=== PATIENT | female | born 1930 | race Caucasian/White ===

== ENCOUNTER 2017-02-19 03:24 | Inpatient (IN) | payer OTHER, MEDICARE ==
[2017-02-19] MEDS ORDERED: NS 1,000 ML IV ONE (03:35)
[2017-02-19 03:50] LABS: % IMMATURE GRANULYOCYTES 0.7 % (0.0-1.1); ABSOLUTE IMMATURE GRANULOCYTES 0.07 10^3/uL (0.00-0.10); ADD DIFF? NO; HEMATOCRIT 33.9 % (38.0-47.0); HEMOGLOBIN 12.4 g/dL (12.6-16.3); MEAN CELL HEMOGLOBIN 32.9 pg (27.9-34.1); MEAN CELL HEMOGLOBIN CONCENTR. 36.6 g/dL (32.4-36.7); MEAN CELL VOLUME 89.9 fL (81.5-99.8); MEAN PLATELET VOLUME 10.7 fL (8.7-11.7); PLATELET COUNT 219 10^3/uL (150-400); RED BLOOD CELL COUNT 3.77 10^6/uL (4.18-5.33); RED CELL DISTRIBUTION WIDTH 12.3 % (11.5-15.2)
[2017-02-19 03:51] LABS: ADD MORPH? NO; ADD SCAN? NO; ATYPICAL LYMPHOCYTE FLAG 0 (0-99); FRAGMENT RBC FLAG 0 (0-99); LEFT SHIFT FLG 0 (0-99); LIPEMIA HEMOLYSIS FLAG 90 (0-99); PLATELET CLUMPS FLAG 10 (0-99)
[2017-02-19 04:04] LABS: ALANINE AMINOTRANSFERASE 40 IU/L (9-52); ALBUMIN 4.4 g/dL (3.5-5.0); ALKALINE PHOSPHATASE 54 IU/L (38-126); ANION GAP 9 mEq/L (8-16); ASPARTATE AMINOTRANSFERASE 44 IU/L (14-46); BILIRUBIN,TOTAL 1.1 mg/dL (0.1-1.4); BILIRUBIN-CONJUGATED 0.3 mg/dL (0.0-0.5); BILIRUBIN-UNCONJUGATED 0.8 mg/dL (0.0-1.1); CALCIUM 8.8 mg/dL (8.5-10.4); CARBON DIOXIDE 22 mEq/l (22-31); CHLORIDE 90 mEq/L (97-110); CREATININE 0.5 mg/dL (0.6-1.0); GLOMERULAR FILTRATION RATE > 60; GLUCOSE 125 mg/dL (70-100); POTASSIUM 3.7 mEq/L (3.5-5.2); SODIUM 121 mEq/L (134-144); TOTAL PROTEIN 6.9 g/dL (6.3-8.2)
[2017-02-19] MEDS ORDERED: AZITHROMYCIN 250 MG TAB PO ONE (04:26)
--- NOTE | 2017-02-19 04:26 | EDPHY ---
H & P Stated Complaint: increased weakness, N/V for past few hours Time Seen by Provider: 02/19/17 03:34 HPI/ROS: HPI The patient presents brought in by ambulance for nausea, vomiting, weakness, chills. Her symptoms have been present for the last 1 day and have been constant. She thinks she threw up about once. She has not had any fever that she is aware of. She has a similar prior episode in October of 2016. At that time she had similar symptoms and was found to be severely hyponatremic. She was transferred to the ICU at [facility]. Her hyponatremia was thought to be related to dehydration from diarrhea. She denies any diarrhea currently. REVIEW OF SYSTEMS Constitutional: No fever, no chills. Eyes: No discharge. ENT: No sore throat. Cardiovascular: No chest pain, no palpitations. Respiratory: No cough, no shortness of breath. Gastrointestinal: No abdominal pain, no vomiting. Genitourinary: No hematuria. Musculoskeletal: No back pain. Skin: No rashes. Neurological: No headache. PMHx:celiac disease, HL, anemia, hypothyroidism Soc Hx: resident at [facility] PHYSICAL General Appearance: Alert, no distress Eyes: Pupils equal and round no pallor or injection ENT, Mouth: Mucous membranes moist Respiratory: She has tachypneic, there are no retractions, lungs are clear to auscultation Cardiovascular: Regular rate and rhythm Gastrointestinal: Abdomen is soft and non-tender, no masses, bowel sounds normal Neurological: A&O, moves all extremities Skin: Warm and dry, no rashes Musculoskeletal: Neck is supple non tender Extremities: symmetrical, full range of motion Psychiatric: Patient is oriented X 3, there is no agitation Source: Patient, EMS - Personal History Current Tetanus/Diphtheria Vaccine: Unsure Current Tetanus Diphtheria and Acellular Pertussis (TDAP): Unsure - Medical/Surgical History Hx Asthma: No Hx Chronic Respiratory Disease: No Hx Diabetes: No Hx Cardiac Disease: No Hx Renal Disease: No Hx Cirrhosis: No Hx Alcoholism: No Hx HIV/AIDS: No Hx Splenectomy or Spleen Trauma: No Other PMH: hypothyroidism, anxiety, celiac disease, appy, hysterectomy, ostopenia - Social History Smoking Status: Never smoked Constitutional: Initial Vital Signs Temperature (C) 36.8 C 02/19/17 03:39 Heart Rate 83 02/19/17 03:39 Respiratory Rate 30 H 02/19/17 03:39 Blood Pressure 124/84 H 02/19/17 03:39 O2 Sat (%) 97 02/19/17 03:39 O2 Delivery Mode Nasal Cannula O2 (L/minute) 2 Allergies/Adverse Reactions: codeine Allergy (Verified 01/24/16 12:37) gluten Allergy (Verified 01/24/16 12:38) iodine Allergy (Verified 02/19/17 03:42) latex Allergy (Verified 02/19/17 03:42) morphine Allergy (Verified 01/24/16 12:38) shellfish derived Allergy (Verified 01/24/16 12:38) Home Medications: Medication Instructions Recorded ACIDOPHILUS 02/19/17 ALPRAZolam 02/19/17 ASPIRIN 02/19/17 CALCIUM 02/19/17 Levothyroxine 02/19/17 Lutein 02/19/17 MAGNESIUM 02/19/17 Vitamin D3 02/19/17 Medical Decision Making - Diagnostics EKG Interpretation: EKG: Complete interpretation has been separately recorded in the [employer] archive. Summary impression: Normal sinus rhythm with rate of 63 Imaging: Chest x-ray two view shows right middle lobe infiltrate, interpreted by me, radiology interpretation is pending. Differential Diagnosis: This is an 86-year-old female with history of celiac disease, hypothyroidism, depression, admission about 4 months ago for hyponatremia related to dehydration from diarrhea, who presents brought in by ambulance for several hours of nausea, vomiting, weakness. On exam, she does have normal vital signs though is somewhat tachypneic. Differential diagnosis includes sepsis, pneumonia, urinary tract infection, electrolyte disturbance, dehydration. She has a benign abdominal exam, thus I doubt acute intra-abdominal process. In the emergency room, the patient was initially given a normal saline bolus because of concern for sepsis. Labs and studies returned and showed that she was hyponatremic. At this time her fluids were held. Chest x-ray did show possible right middle lobe infiltrate and given her tachypnea, I will treat her for pneumonia with azithromycin and ceftriaxone. She was unable to provide a urine sample. It is unclear what the cause of her hyponatremia is at this time. Her vomiting could be resultant from the hyponatremia itself. Either way , she will require admission to the hospital, I have discussed the case with Dr. Justyn Blankenship from the hospitalist service and we will admit her. - Data Points Laboratory Results: Laboratory Results 02/19/17 03:45 02/19/17 03:45 02/19/17 02/19/17 02/19/17 03:50 03:50 03:45 WBC RBC Hgb Hct MCV MCH MCHC RDW Plt Count MPV Neut % (Auto) Lymph % (Auto) [place] % (Auto) Eos % (Auto) Baso % (Auto) Nucleat RBC Rel Count Absolute Neuts (auto) Absolute Lymphs (auto) Absolute Monos (auto) Absolute Eos (auto) Absolute Basos (auto) Absolute Nucleated RBC Immature Gran % Immature Gran # VBG Lactic Acid 1.9 mmol/L mmol/L (0.7-2.1) Sodium 121 mEq/L L mEq/L (134-144) Potassium 3.7 mEq/L mEq/L (3.5-5.2) Chloride 90 mEq/L L mEq/L (97-110) Carbon Dioxide 22 mEq/l mEq/l (22-31) Anion Gap 9 mEq/L mEq/L (8-16) BUN 9 mg/dL mg/dL (7-23) Creatinine 0.5 mg/dL L mg/dL (0.6-1.0) Estimated GFR > 60 Glucose 125 mg/dL H mg/dL (70-100) Calcium 8.8 mg/dL mg/dL (8.5-10.4) Total Bilirubin 1.1 mg/dL mg/dL (0.1-1.4) Conjugated Bilirubin 0.3 mg/dL mg/dL (0.0-0.5) Unconjugated Bilirubin 0.8 mg/dL mg/dL (0.0-1.1) AST 44 IU/L IU/L (14-46) ALT 40 IU/L IU/L (9-52) Alkaline Phosphatase 54 IU/L IU/L (38-126) Total Protein 6.9 g/dL g/dL (6.3-8.2) Albumin 4.4 g/dL g/dL (3.5-5.0) Lipase 68.0 IU/L IU/L (23-300) Influenza Typ A,B (DFA) NEGATIVE FOR FLU (NEGATIVE) 02/19/17 03:45 WBC 10.49 10^3/uL H 10^3/uL (3.80-9.50) RBC 3.77 10^6/uL L 10^6/uL (4.18-5.33) Hgb 12.4 g/dL L g/dL (12.6-16.3) Hct 33.9 % L % (38.0-47.0) MCV 89.9 fL fL (81.5-99.8) MCH 32.9 pg pg (27.9-34.1) MCHC 36.6 g/dL g/dL (32.4-36.7) RDW 12.3 % % (11.5-15.2) Plt Count 219 10^3/uL 10^3/uL (150-400) MPV 10.7 fL fL (8.7-11.7) Neut % (Auto) 88.8 % H % (39.3-74.2) Lymph % (Auto) 6.1 % L % (15.0-45.0) [place] % (Auto) 4.2 % L % (4.5-13.0) Eos % (Auto) 0.0 % L % (0.6-7.6) Baso % (Auto) 0.2 % L % (0.3-1.7) Nucleat RBC Rel Count 0.0 % % (0.0-0.2) Absolute Neuts (auto) 9.32 10^3/uL H 10^3/uL (1.70-6.50) Absolute Lymphs (auto) 0.64 10^3/uL L 10^3/uL (1.00-3.00) Absolute Monos (auto) 0.44 10^3/uL 10^3/uL (0.30-0.80) Absolute Eos (auto) 0.00 10^3/uL L 10^3/uL (0.03-0.40) Absolute Basos (auto) 0.02 10^3/uL 10^3/uL (0.02-0.10) Absolute Nucleated RBC 0.00 10^3/uL 10^3/uL (0-0.01) Immature Gran % 0.7 % % (0.0-1.1) Immature Gran # 0.07 10^3/uL 10^3/uL (0.00-0.10) VBG Lactic Acid Sodium Potassium Chloride Carbon Dioxide Anion Gap BUN Creatinine Estimated GFR Glucose Calcium Total Bilirubin Conjugated Bilirubin Unconjugated Bilirubin AST ALT Alkaline Phosphatase Total Protein Albumin Lipase Influenza Typ A,B (DFA) Medications Given: Discontinued Medications Azithromycin (Zithromax) 500 mg PO EDNOW ONE PRN Reason: Protocol Stop: 02/19/17 04:27 Last Admin: 02/19/17 04:43 Dose: 500 mg Sodium Chloride (Ns) 1,000 mls @ 0 mls/hr IV ONCE ONE PRN Reason: Wide Open Stop: 02/19/17 03:36 Last Admin: 02/19/17 03:49 Dose: 1,000 mls Ceftriaxone Sodium/Dextrose (Rocephin 1 Gm (Premix)) 50 mls @ 100 mls/hr IV EDNOW ONE PRN Reason: Protocol Stop: 02/19/17 04:55 Last Admin: 02/19/17 04:43 Dose: 50 mls Ondansetron HCl (Zofran) 4 mg IVP EDNOW ONE Stop: 02/19/17 05:16 Last Admin: 02/19/17 05:15 Dose: 4 mg Departure - Departure Condition: Good
--- NOTE | 2017-02-19 04:49 | CPEKG ---
Heart Rate: 63 RR Interval: 952 P-R Interval: 168 QRSD Interval: 90 QT Interval: 444 QTC Interval: 455 P Metaline: 47 QRS Metaline: 77 T Wave Metaline: 48 EKG Severity - BORDERLINE ECG - EKG Impression: SINUS RHYTHM EKG Impression: BORDERLINE T ABNORMALITIES, ANTERIOR LEADS EKG Impression: SIMILAR FINDINGS WERE NOTED IN OCT 2016 Electronically Signed By: Thomas Lowry 20-Feb-2017 11:35:44
[2017-02-19] MEDS ORDERED: ONDANSETRON 4 MG/2 ML VIAL IVP ONE (05:15)
[2017-02-19] MEDS ORDERED: ONDANSETRON 4 MG/2 ML VIAL ONE (05:34)
[2017-02-19] MEDS ORDERED: ONDANSETRON DISINTEGRATING 4 MG TAB PO PRN (07:19)
[2017-02-19] MEDS ORDERED: ONDANSETRON 4 MG/2 ML VIAL IVP PRN (07:19)
--- NOTE | 2017-02-19 07:58 | GHP ---
[f rep st] HISTORY AND PHYSICAL DATE OF ADMISSION: 02/19/2017 HISTORY OF PRESENT ILLNESS: The patient is a pleasant 86-year-old female with a history of hyponatr emia, celiac disease, and possible atrial tachycardia, who presents with an episode of nausea and vo miting. She described her diet to me and it sounds like it is relatively low in sodium. Overnight last night, she developed some nausea, vomiting, weakness, and chills. Her son is present at the [facility] and notes that she is weaker and perhaps a bit slow to respond than usual. I note that she is slow to respond, but not particularly confused. She had an episode of admission to [facility] ICU following presentation to [facility] ER with a sodium 114. That was in the context of di arrhea and this has not going on here as best I can tell. She does not take diuretics. She does melton ve hypothyroidism and takes thyroid replacement. She is tachypneic during the interview, but she is not necessarily having any respiratory complaints . She is notably breathless after sitting up for me to listen to her back. She has not had fever, but she did have the aforementioned chills and vomiting. REVIEW OF SYSTEMS: Complete 10-point review of systems conducted, negative except as noted in the H PI. PAST MEDICAL HISTORY: It sounds like atrial tachycardia detected on the monitor, celiac disease, hy ponatremia. ALLERGIES: Codeine, gluten, iodine, latex, morphine, and shellfish. HOME MEDICATIONS: List I suspect to be old, is vitamin D3, magnesium, lutein, levothyroxine, calciu m, aspirin, alprazolam for sleep, acidophilus. She notes she takes metoprolol. It is not on this l ist. SOCIAL HISTORY: She lives at the [facility]. She does not smoke cigarettes or drink alcohol. FAMILY HISTORY: Son has celiac disease. PHYSICAL EXAM: VITAL SIGNS: Temp 36.8, blood pressure 124/84, pulse 83, breathing 30 times a minut e, 97% on room air. GENERAL: No acute distress. Tachypneic. HEENT: Sclerae anicteric. Orophary nx clear. Mucous membranes moist. NECK: Supple without lymphadenopathy, JVD. LUNGS: Crackles at the right base, but otherwise clear to auscultation bilaterally. HEART: S1, S2. Not tachycardic. ABDOMEN: Soft, nontender, nondistended. LOWER EXTREMITIES: Without edema. Calves are nontender . SKIN: Without rash. NEUROLOGIC: Nonfocal. LABS: White count 10.5, hematocrit is 33.9, platelets are 219,000. She does have a left shift. He r baseline hematocrit is in the 30s. She has a venous lactate of 1.9. Sodium 141, potassium 3.7, c hloride 90, bicarb 22, BUN 9, creatinine 0.5, glucose 125. Lipase and LFTs are normal. She is nega tive for influenza. Chest x-ray, interpreted by me, shows possible right lower lobe infiltrate. Th ere is also some diffuse airspace disease. EKG interpreted by me shows sinus at 63 with normal axis and intervals. Diffuse flat Ts T-wave inversion in V2, V3, although both those leads look an awful lot like V1. We discussed case Dr. Cheryl Holden. ASSESSMENT/PLAN: An 86-year-old female, who presents with vomiting and hyponatremia and likely comm unity-acquired pneumonia. 1. Pneumonia. Treated this as community-acquired pneumonia given that she lives at the [facility] ceftriaxone and azithromycin. It could be an aspiration event related to her vomiting or the vom iting could be related to her inferior pneumonia. Ceftriaxone and Zithromax will be started. 2. Hyponatremia. I suspect this is poor p.o. intake; however, I cannot rule out syndrome of inappr opriate antidiuretic hormone secretion from a pulmonary process. She received about 500 cc of dany l saline. We will repeat a sodium now, follow q.6 hours. Certainly, if it is falling with IV fluid s, that is suggestive of syndrome of inappropriate antidiuretic hormone secretion, for completeness' sake, I have also sent a TSH. We will hold further IV fluids until those studies return. 3. Anemia. This is chronic and mild. 4. Code status. It appears to be full. I discussed it with her. She was hesitant to make any dec isions on that basis. 5. Prophylaxis. Pharmacologic prophylaxis indicated. Start venous thromboembolism prophylaxis wit h enoxaparin 30. 6. Atrial tachycardia. She is stable right now, not having palpitations. 7. Disposition. Inpatient status. /[id number]/MODL
[2017-02-19 08:40] LABS: COLOR YELLOW; LEUKOCYTE ESTERASE,URINE NEGATIVE (NEGATIVE); NITRITE,URINE NEGATIVE (NEGATIVE)
[2017-02-19 08:43] LABS: ANION GAP 9 mEq/L (8-16); CALCIUM 8.9 mg/dL (8.5-10.4); CARBON DIOXIDE 21 mEq/l (22-31); CHLORIDE 92 mEq/L (97-110); CREATININE 0.6 mg/dL (0.6-1.0); GLOMERULAR FILTRATION RATE > 60; GLUCOSE 105 mg/dL (70-100); POTASSIUM 3.7 mEq/L (3.5-5.2); SODIUM 122 mEq/L (134-144)
[2017-02-19] MEDS: ENOXAPARIN 30 MG/0.3 ML SYR SC SCH (10:36)
[2017-02-19] MEDS ORDERED: diphenhydrAMINE 25 MG CAP PO PRN (11:17)
[2017-02-19] MEDS ORDERED: ALPRAZolam 0.25 MG TAB PO PRN (11:17)
[2017-02-19 11:43] LABS: ANION GAP 10 mEq/L (8-16); CALCIUM 8.6 mg/dL (8.5-10.4); CARBON DIOXIDE 21 mEq/l (22-31); CHLORIDE 91 mEq/L (97-110); CREATININE 0.6 mg/dL (0.6-1.0); GLOMERULAR FILTRATION RATE > 60; GLUCOSE 128 mg/dL (70-100); POTASSIUM 3.6 mEq/L (3.5-5.2); SODIUM 122 mEq/L (134-144)
[2017-02-19] MEDS: NS 1,000 ML IV SCH (11:49)
[2017-02-19] MEDS: LEVOTHYROXINE 50 MCG TAB PO SCH (11:55)
[2017-02-19] MEDS ORDERED: FAMOTIDINE 20 MG TAB PO PRN ×2 (15:50→21:00)
--- NOTE | 2017-02-19 16:43 | HOSPPROG ---
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 * will continue gentle IV fluids and fluid restriction as well as salt tablets * monitor sodium Subjective: feels stronger Objective: Vital Signs Temp Pulse Resp BP Pulse Ox 37.3 C 62 18 117/54 L 97 02/19/17 15:39 02/19/17 15:39 02/19/17 15:39 02/19/17 15:39 02/19/17 15:39 Laboratory Results 02/19/17 10:58 02/18/17 02/19/17 02/20/17 05:59 05:59 05:59 Intake Total 1420 Output Total 1100 Balance 320 - Physical Exam Constitutional: no apparent distress, appears nourished, not in pain Eyes: anicteric sclera, EOMI Ears, Nose, Mouth, Throat: moist mucous membranes Cardiovascular: regular rate and rhythym, no murmur, rub, or gallop Respiratory: no respiratory distress, no rales or rhonchi, clear to auscultation Gastrointestinal: normoactive bowel sounds, soft, non-tender abdomen, no palpable masses Skin: warm Neurologic: AAOx3 Psychiatric: interacting appropriately, not anxious, not encephalopathic, thought process linear
[2017-02-19] MEDS: SODIUM CHLORIDE 1,000 MG TAB PO SCH (17:27)
[2017-02-19] MEDS: METOPROLOL TARTRATE 25 MG TAB PO SCH (21:06)
[2017-02-19] MEDS: MIRTAZAPINE 15 MG TAB PO SCH (21:07)
[2017-02-20] MEDS: NS 1,000 ML IV SCH (01:12)
[2017-02-20 05:37] LABS: % IMMATURE GRANULYOCYTES 0.4 % (0.0-1.1); ABSOLUTE IMMATURE GRANULOCYTES 0.03 10^3/uL (0.00-0.10); ADD DIFF? NO; ADD MORPH? NO; ADD SCAN? NO; ATYPICAL LYMPHOCYTE FLAG 10 (0-99); FRAGMENT RBC FLAG 0 (0-99); HEMATOCRIT 30.7 % (38.0-47.0); HEMOGLOBIN 11.1 g/dL (12.6-16.3); LEFT SHIFT FLG 0 (0-99); LIPEMIA HEMOLYSIS FLAG 90 (0-99); MEAN CELL HEMOGLOBIN 33.1 pg (27.9-34.1); MEAN CELL HEMOGLOBIN CONCENTR. 36.2 g/dL (32.4-36.7); MEAN CELL VOLUME 91.6 fL (81.5-99.8); MEAN PLATELET VOLUME 8.9 fL (8.7-11.7); PLATELET CLUMPS FLAG 10 (0-99); PLATELET COUNT 226 10^3/uL (150-400); RED BLOOD CELL COUNT 3.35 10^6/uL (4.18-5.33); RED CELL DISTRIBUTION WIDTH 12.8 % (11.5-15.2)
[2017-02-20 05:57] LABS: ANION GAP 7 mEq/L (8-16); CALCIUM 8.3 mg/dL (8.5-10.4); CARBON DIOXIDE 24 mEq/l (22-31); CHLORIDE 102 mEq/L (97-110); CREATININE 0.6 mg/dL (0.6-1.0); GLOMERULAR FILTRATION RATE > 60; GLUCOSE 85 mg/dL (70-100); POTASSIUM 3.8 mEq/L (3.5-5.2); SODIUM 133 mEq/L (134-144)
[2017-02-20] MEDS ORDERED: LEVOTHYROXINE 25 MCG TAB PO SCH (08:00)
[2017-02-20] MEDS ORDERED: AZITHROMYCIN IV 500 MG in D5W 250 ML IV SCH (09:00)
[2017-02-20] MEDS: ENOXAPARIN 30 MG/0.3 ML SYR SC SCH (09:14)
[2017-02-20] MEDS: AZITHROMYCIN 250 MG TAB PO SCH (09:15)
[2017-02-20] MEDS: METOPROLOL TARTRATE 25 MG TAB PO SCH ×2 (09:15→20:52)
[2017-02-20] MEDS: ASPIRIN EC 81 MG TAB PO SCH (09:16)
[2017-02-20] MEDS: SODIUM CHLORIDE 1,000 MG TAB PO SCH (09:18)
[2017-02-20 10:15] LABS: ANION GAP 8 mEq/L (8-16); CALCIUM 8.5 mg/dL (8.5-10.4); CARBON DIOXIDE 24 mEq/l (22-31); CHLORIDE 102 mEq/L (97-110); CREATININE 0.6 mg/dL (0.6-1.0); GLOMERULAR FILTRATION RATE > 60; GLUCOSE 92 mg/dL (70-100); POTASSIUM 3.6 mEq/L (3.5-5.2); SODIUM 134 mEq/L (134-144)
[2017-02-20] MEDS: ACETAMINOPHEN 325 MG TAB PO PRN (10:57)
--- NOTE | 2017-02-20 11:22 | HOSPPROG ---
Hospitalist Progress Note Assessment/Plan: * ?community-acquired pneumonia * continue ceftriaxone and azithromycin * recheck chest x-ray. 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 sodium went up 12 in 24 hours * celiac * hypothyroidism * possible history of atrial tachycardia * disposition - will keep in hospital 1 more night to get a little bit stronger and probably discharge tomorrow Subjective: feels better overall but not quite at baseline Objective: Vital Signs Temp Pulse Resp BP Pulse Ox 36.8 C 71 14 124/62 H 94 02/20/17 07:25 02/20/17 09:15 02/20/17 07:25 02/20/17 09:15 02/20/17 07:25 Laboratory Results 02/20/17 05:19 02/20/17 09:45 02/19/17 02/20/17 02/21/17 05:59 05:59 05:59 Intake Total 3003 Output Total 3100 Balance -97 - Physical Exam Constitutional: no apparent distress, appears nourished, not in pain Eyes: anicteric sclera, EOMI Ears, Nose, Mouth, Throat: moist mucous membranes, hearing normal, ears appear normal Cardiovascular: regular rate and rhythym, no murmur, rub, or gallop Respiratory: no respiratory distress, no rales or rhonchi, clear to auscultation Skin: warm Neurologic: AAOx3 Psychiatric: interacting appropriately, not anxious, not encephalopathic, thought process linear
[2017-02-20] MEDS: MIRTAZAPINE 15 MG TAB PO SCH (20:54)
[2017-02-20 22:48] VITALS: TEMP 98.4
[2017-02-21 06:01] LABS: ANION GAP 11 mEq/L (8-16); CALCIUM 8.7 mg/dL (8.5-10.4); CARBON DIOXIDE 23 mEq/l (22-31); CHLORIDE 100 mEq/L (97-110); CREATININE 0.6 mg/dL (0.6-1.0); GLOMERULAR FILTRATION RATE > 60; GLUCOSE 80 mg/dL (70-100); POTASSIUM 3.8 mEq/L (3.5-5.2); SODIUM 134 mEq/L (134-144)
[2017-02-21 07:30] VITALS: BP 145/76; PULSE 73; RESP 18; O2SAT 94
[2017-02-21] MEDS: ACETAMINOPHEN 325 MG TAB PO PRN (09:00)
[2017-02-21] MEDS: AZITHROMYCIN 250 MG TAB PO SCH (09:01)
[2017-02-21] MEDS: ASPIRIN EC 81 MG TAB PO SCH (09:01)
[2017-02-21] MEDS: ENOXAPARIN 30 MG/0.3 ML SYR SC SCH (09:01)
[2017-02-21] MEDS: METOPROLOL TARTRATE 25 MG TAB PO SCH (09:01)
[2017-02-21] MEDS: LEVOTHYROXINE 50 MCG TAB PO SCH (11:33)
--- NOTE | 2017-02-21 13:38 | PDIAF ---
- Diagnosis Diagnosis: hyponatremia Code Status: Full Code - Medication Management Discharge Medications: Medications to Continue on Transfer ALPRAZolam [Xanax 0.25 MG (*)] 0.25 mg PO DAILY PRN 02/19/17 [Last Taken Unknown ] Acetaminophen [Tylenol 325mg (*)] 325 mg PO DAILY PRN 02/19/17 [Last Taken Unknown] Aspirin EC [Aspirin EC 81 mg (*)] 81 mg PO DAILY 02/19/17 [Last Taken Unknown] Cholecalciferol Vit D3 [Vitamin D3 2000 units tab (OTC)] 4,000 units PO DAILY [Last Taken Unknown] Herbals/Supplements -Info Only 1 ea PO DAILY 02/19/17 [Last Taken Unknown] Levothyroxine [Synthroid 25 mcg (*)] 25 mcg PO MWF 02/19/17 [Last Taken Unknown] Levothyroxine [Synthroid 50 mcg (*)] 50 mcg PO SUTUTHSA 02/19/17 [Last Taken 01/04] MIRTAZAPINE [Remeron 7.5 mg] 0.5 - 1 tab PO HS 02/19/17 [Last Taken 02/17/17] Metoprolol Tartrate [Lopressor 25 mg (*)] 25 mg PO BID 02/19/17 [Last Taken 02/01] Multivitamins [Multivitamin (*)] 1 each PO DAILY 02/19/17 [Last Taken Unknown] Alpine-3 Fatty Acids [Fish Oil 1000 mg (*)] 1,000 mg PO DAILY 02/19/17 [Last Taken Unknown] Ranitidine HCl [Zantac 75] 75 - 150 mg PO DAILY PRN 02/19/17 [Last Taken Unknown ] diphenhydrAMINE [Benadryl 25 MG (*)] 25 mg PO DAILY PRN 02/19/17 [Last Taken Unknown] Discharge Medications: Refer to the Discharge Home Medication list for PRN reason. - Orders Services needed: Home Care, Physical Therapy, Occupational Therapy Home Care Face to Face: I certify that this patient was under my care and that I had the required [id number] encounter meeting the encounter requirements on the discharge day. My findings support the fact that the patient is homebound as defined in CMS Chapter 7 Medicare Benefits Manual 30.1.1, The condition of the patient is such that there exists a normal inability to leave home and consequently, leaving home would require a considerable and taxing effort. Diet Recommendation: fluid restriction (use comment for amount) (1200cc daily) - Follow Up Care Current Providers and Referrals: Moi Rios MD [Primary Care Provider] - follow up in 1 week (need blood sodium level in 1 week)
--- NOTE | 2017-02-21 16:46 | GDS ---
[f rep st] DISCHARGE SUMMARY DISCHARGE DIAGNOSES: 1. Hyponatremia secondary to syndrome of inappropriate antidiuretic hormone secretion and dehydrati on. 2. Episode of nausea and vomiting, possible viral. 3. Previous history of hyponatremia. 4. Celiac disease. HISTORY: This is an 86-year-old female with a previous history of hyponatremia. She has been monit ored by her primary care doctor. In fact, her sodium was normal 3 weeks prior. She had an episode of a day of nausea, vomiting, and diarrhea, and then presented with confusion and dizziness. Sodium was 122. 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 I think there wa s an element also of dehydration. She was given very gentle hydration, and sodium did go up into th e 130s. Her symptoms have resolved. Chest x-ray initially was suspicion of pneumonia, although patient did not have any symptoms. She d id receive a few days of antibiotics here. Repeat chest x-ray did not show any blossoming of pneumo jaime. We will discontinue her antibiotics. FOLLOWUP INSTRUCTIONS: She was instructed to follow up with her primary care doctor and get sodium levels drawn. I suspect this the hyponatremia was due to a viral syndrome, but I suppose she could have been dropping over the last few weeks and thus low sodium was causing the nausea and vomiting. She should be monitored closely by her primary care physician. TIME SPENT: Greater than 30 minutes was spent on discharge. /[id number]/MODL
== END 2017-02-21 15:45 | disposition home health service (06) | DRG 645 ==
LOC: EDUNIT# → F3E 07:54
PROVIDERS: ADMIT Internal Medicine; ATTEND Internal Medicine
DX: E22.2 Syndrome of inappropriate secretion of antidiuretic hormone (principal); R11.2 Nausea with vomiting, unspecified; E03.9 Hypothyroidism, unspecified; K90.0 Celiac disease
CPT/HCPCS: 97116-GP; 97161-GP; 97165-GO; 97535-GO; G8978-GP-CI; G8979-GP-CI; G8980-GP-CI; G8987-GO-CJ; G8988-GO-CI; G8989-GO-CI; J0456; J0696; J1650; J2405

== ENCOUNTER 2017-07-18 06:58 | Emergency (ER) | payer OTHER, MEDICARE ==
--- NOTE | 2017-07-18 07:09 | EDPHY ---
H & P Time Seen by Provider: 07/18/17 07:07 HPI/ROS: Chief Complaint: Dizziness, diarrhea HPI: 6-year-old woman with a history of celiac disease was having loose stools all night long. Patient states she had at least 6 or 7 loose stools over the course of the night. This morning at 5:30 a.m. when she got up with bathroom she felt lightheaded. Did not pass out or have any syncope. Does walk with a walker. She called her son the doctor advised her to call EMS. She has had some nausea no diarrhea. She has had similar symptoms in the past, the last being in February. Does not have any abdominal pain. No chest pain or shortness of breath. No fevers or chills. No recent travel. T this is similar to prior episodes in the past. She also has a history of hyponatremia. ROS: 10 point Review of Systems is negative except as noted in the HPI. PMH: Celiac disease, atrial tachycardia, hyponatremia Social History: No smoking, no alcohol, no recreational drug use Family History: non-contributory Physical Exam: Gen: Awake, Alert, No Distress HEENT: Nose: no rhinorrhea Eyes: PERRLA, EOMI, no nystagmus Mouth: Moist mucosa Neck: Supple, no JVD Chest: nontender, lungs clear to auscultation Heart: S1, S2 normal, no murmur Abd: Soft, non-tender, no guarding Back: no CVA tenderness, no midline tenderness Ext: no edema, non-tender Skin: no rash Neuro: CN II-XII intact, Sensation grossly intact, Strength 5/5 in bilateral upper and lower extremities - Medical/Surgical History Hx Asthma: No Hx Chronic Respiratory Disease: No Hx Diabetes: No Hx Cardiac Disease: No Hx Renal Disease: No Hx Cirrhosis: No Hx Alcoholism: No Hx HIV/AIDS: No Hx Splenectomy or Spleen Trauma: No Other PMH: hypothyroidism, anxiety, celiac disease, appy, hysterectomy, ostopenia - Social History Smoking Status: Never smoked Constitutional: Initial Vital Signs Temperature (C) 37.4 C 07/18/17 07:04 Heart Rate 75 07/18/17 07:04 Respiratory Rate 16 07/18/17 07:04 Blood Pressure 162/74 H 07/18/17 07:04 O2 Sat (%) 94 07/18/17 07:04 O2 Delivery Mode Room Air Allergies/Adverse Reactions: codeine Allergy (Verified 07/18/17 07:04) gluten Allergy (Verified 07/18/17 07:04) iodine Allergy (Verified 07/18/17 07:04) latex Allergy (Verified 07/18/17 07:04) morphine Allergy (Verified 07/18/17 07:04) shellfish derived Allergy (Verified 07/18/17 07:04) Home Medications: Medication Instructions Recorded ALPRAZolam [Xanax 0.25 MG (*)] 0.25 mg PO DAILY PRN 02/19/17 Acetaminophen [Tylenol 325mg (*)] 325 mg PO DAILY PRN 02/19/17 Aspirin EC [Aspirin EC 81 mg (*)] 81 mg PO DAILY 02/19/17 Cholecalciferol Vit D3 [Vitamin D3 4,000 units PO DAILY 02/19/17 2000 units tab (OTC)] Herbals/Supplements -Info Only 1 ea PO DAILY 02/19/17 Levothyroxine [Synthroid 25 mcg 25 mcg PO F 02/19/17 (*)] Levothyroxine [Synthroid 50 mcg 50 mcg PO SUTUTHSA 02/19/17 (*)] Multivitamins [Multivitamin (*)] 1 each PO DAILY 02/19/17 [place]-3 Fatty Acids [Fish Oil 1000 1,000 mg PO DAILY 02/19/17 mg (*)] Ranitidine HCl [Zantac 75] 75 - 150 mg PO DAILY PRN 02/19/17 diphenhydrAMINE [Benadryl 25 MG 25 mg PO DAILY PRN 02/19/17 (*)] Medical Decision Making ED Course/Re-evaluation: 724 CT angiogram of the head neck is negative for acute vertebral artery dissection or other pathological process at this time. Patient will be discharged per Dr. Interiano plan. - Data Points Laboratory Results: Laboratory Results 07/18/17 07:00 07/18/17 07:00 07/18/17 07/18/17 07/18/17 09:00 07:00 07:00 WBC 5.07 10^3/uL 10^3/uL (3.80-9.50) RBC 4.05 10^6/uL L 10^6/uL (4.18-5.33) Hgb 13.1 g/dL g/dL (12.6-16.3) Hct 38.1 % % (38.0-47.0) MCV 94.1 fL fL (81.5-99.8) MCH 32.3 pg pg (27.9-34.1) MCHC 34.4 g/dL g/dL (32.4-36.7) RDW 12.7 % % (11.5-15.2) Plt Count 270 10^3/uL 10^3/uL (150-400) MPV 9.8 fL fL (8.7-11.7) Neut % (Auto) 84.9 % H % (39.3-74.2) Lymph % (Auto) 10.3 % L % (15.0-45.0) [place] % (Auto) 3.6 % L % (4.5-13.0) Eos % (Auto) 0.2 % L % (0.6-7.6) Baso % (Auto) 0.6 % % (0.3-1.7) Nucleat RBC Rel Count 0.0 % % (0.0-0.2) Absolute Neuts (auto) 4.31 10^3/uL 10^3/uL (1.70-6.50) Absolute Lymphs (auto) 0.52 10^3/uL L 10^3/uL (1.00-3.00) Absolute Monos (auto) 0.18 10^3/uL L 10^3/uL (0.30-0.80) Absolute Eos (auto) 0.01 10^3/uL L 10^3/uL (0.03-0.40) Absolute Basos (auto) 0.03 10^3/uL 10^3/uL (0.02-0.10) Absolute Nucleated RBC 0.00 10^3/uL 10^3/uL (0-0.01) Immature Gran % 0.4 % % (0.0-1.1) Immature Gran # 0.02 10^3/uL 10^3/uL (0.00-0.10) Sodium 137 mEq/L mEq/L (134-144) Potassium 4.3 mEq/L mEq/L (3.5-5.2) Chloride 102 mEq/L mEq/L (97-110) Carbon Dioxide 23 mEq/l mEq/l (22-31) Anion Gap 12 mEq/L mEq/L (8-16) BUN 20 mg/dL mg/dL (7-23) Creatinine 0.6 mg/dL mg/dL (0.6-1.0) Estimated GFR > 60 Glucose 118 mg/dL H mg/dL (70-100) Calcium 9.5 mg/dL mg/dL (8.5-10.4) Troponin I < 0.012 ng/mL ng/mL (0.000-0.034) Urine Color YELLOW Urine Appearance CLEAR Urine pH 8.0 H (5.0-7.5) Ur Specific [place] 1.015 (1.002-1.030) Urine Protein NEGATIVE (NEGATIVE) Urine Ketones 1+ H (NEGATIVE) Urine Blood NEGATIVE (NEGATIVE) Urine Nitrate NEGATIVE (NEGATIVE) Urine Bilirubin NEGATIVE (NEGATIVE) Urine Urobilinogen NEGATIVE EU EU (0.2-1.0) Ur Leukocyte Esterase NEGATIVE (NEGATIVE) Urine Glucose NEGATIVE (NEGATIVE) Medications Given: Discontinued Medications Alprazolam (Xanax) 0.25 mg PO EDNOW ONE Stop: 07/18/17 10:01 Last Admin: 07/18/17 10:07 Dose: 0.25 mg Sodium Chloride (Ns) 500 mls @ 0 mls/hr IV ONCE ONE PRN Reason: Wide Open Stop: 07/18/17 07:43 Last Admin: 07/18/17 07:55 Dose: 500 mls Ondansetron HCl (Zofran) 4 mg IVP EDNOW ONE Stop: 07/18/17 09:23 Last Admin: 07/18/17 09:25 Dose: 4 mg Departure - Departure Disposition: Home, Routine, Self-Care Clinical Impression: Dehydration, Diarrhea Condition: Good Instructions: Chronic Diarrhea (ED), Dehydration (ED) Additional Instructions: Follow up with primary care physician in 2-3 days for re-evaluation. Make sure you drink plenty of fluids. Return to the emergency department for fainting, chest pain, shortness of breath , or any other concerns. Referrals: Moi Rios MD [Primary Care Provider] - As per Instructions
[2017-07-18 07:14] LABS: % IMMATURE GRANULYOCYTES 0.4 % (0.0-1.1); ABSOLUTE IMMATURE GRANULOCYTES 0.02 10^3/uL (0.00-0.10); ADD DIFF? NO; ADD MORPH? NO; ADD SCAN? NO; ATYPICAL LYMPHOCYTE FLAG 0 (0-99); FRAGMENT RBC FLAG 0 (0-99); HEMATOCRIT 38.1 % (38.0-47.0); HEMOGLOBIN 13.1 g/dL (12.6-16.3); LEFT SHIFT FLG 0 (0-99); LIPEMIA HEMOLYSIS FLAG 90 (0-99); MEAN CELL HEMOGLOBIN 32.3 pg (27.9-34.1); MEAN CELL HEMOGLOBIN CONCENTR. 34.4 g/dL (32.4-36.7); MEAN CELL VOLUME 94.1 fL (81.5-99.8); MEAN PLATELET VOLUME 9.8 fL (8.7-11.7); PLATELET CLUMPS FLAG 0 (0-99); PLATELET COUNT 270 10^3/uL (150-400); RED BLOOD CELL COUNT 4.05 10^6/uL (4.18-5.33); RED CELL DISTRIBUTION WIDTH 12.7 % (11.5-15.2)
[2017-07-18 07:29] LABS: ANION GAP 12 mEq/L (8-16); CALCIUM 9.5 mg/dL (8.5-10.4); CARBON DIOXIDE 23 mEq/l (22-31); CHLORIDE 102 mEq/L (97-110); CREATININE 0.6 mg/dL (0.6-1.0); GLOMERULAR FILTRATION RATE > 60; GLUCOSE 118 mg/dL (70-100); POTASSIUM 4.3 mEq/L (3.5-5.2); SODIUM 137 mEq/L (134-144)
--- NOTE | 2017-07-18 07:37 | CPEKG ---
Heart Rate: 68 RR Interval: 882 P-R Interval: 148 QRSD Interval: 82 QT Interval: 404 QTC Interval: 430 P [place]: 69 QRS [place]: 85 T Wave [place]: 82 EKG Severity - ABNORMAL ECG - EKG Impression: SINUS RHYTHM EKG Impression: BORDERLINE RIGHT AXIS DEVIATION EKG Impression: NONSPECIFIC T ABNORMALITIES, ANTERIOR LEADS Electronically Signed By: Kole Wilson 24-Jul-2017 16:57:04
[2017-07-18 07:41] LABS: TROPONIN I < 0.012 ng/mL (0.000-0.034)
[2017-07-18] MEDS ORDERED: NS 500 ML IV ONE (07:42)
[2017-07-18 09:07] LABS: COLOR YELLOW; LEUKOCYTE ESTERASE,URINE NEGATIVE (NEGATIVE); NITRITE,URINE NEGATIVE (NEGATIVE)
[2017-07-18] MEDS ORDERED: ONDANSETRON 4 MG/2 ML VIAL IVP ONE (09:22)
[2017-07-18] MEDS ORDERED: ALPRAZolam 0.25 MG TAB PO ONE (10:00)
[2017-07-18 11:54] VITALS: BP 141/68; PULSE 74; RESP 16; TEMP 99.5; O2SAT 96
== END 2017-07-18 12:17 | disposition home or self-care (01) ==
LOC: EDUNIT#
DX: E86.0 Dehydration (principal); Z79.82 Long term (current) use of aspirin; Z91.040 Latex allergy status
CPT/HCPCS: 93005; 96361; 96374; 99284; J2405

== ENCOUNTER → 2017-11-19 | Outpatient (CLI) | payer OTHER, MEDICARE | LOC: BHFA 11:00 | PROVIDERS: ATTEND Internal Medicine Cardiovascular Disease | DX: I47.1 Supraventricular tachycardia (principal) ==

== ENCOUNTER → 2018-08-11 | Outpatient (CLI) | payer OTHER, MEDICARE | LOC: BHFA 10:30 | PROVIDERS: ATTEND Internal Medicine Cardiovascular Disease | DX: R94.31 Abnormal electrocardiogram [ECG] [EKG] (principal); R06.02 Shortness of breath; I11.9 Hypertensive heart disease without heart failure ==

== ENCOUNTER → 2018-08-27 | Outpatient (CLI) | payer OTHER, MEDICARE | LOC: BHFA 09:00 | PROVIDERS: ATTEND Internal Medicine Cardiovascular Disease | DX: R94.31 Abnormal electrocardiogram [ECG] [EKG] (principal); R06.02 Shortness of breath; I10 Essential (primary) hypertension | CPT/HCPCS: 78452; 93017; A9500; J2785 ==

== ENCOUNTER 2019-04-24 20:54 | Emergency (ER) | payer OTHER, MEDICARE | END 2019-04-24 23:20 | disposition home or self-care (01) ==